=== PATIENT | male | born 1950 | race Caucasian/White ===

== ENCOUNTER → 2017-02-10 | Outpatient (REF) | payer OTHER ==
[~2017-02-10] MED LIST: /LANS30GR; FLON0.05; LIPI20TA; PROBIOTICS; [UNRECOGNIZED DRUG - OTHER]
[2017-02-13 00:07] LABS: Lyme Disease IgG Ab 18 kDa Ban Absent (.); Lyme Disease IgG Ab 23 kDa Ban Absent (.); Lyme Disease IgG Ab 28 kDa Ban Absent (.); Lyme Disease IgG Ab 30 kDa Ban Absent (.); Lyme Disease IgG Ab 39 kDa Ban Absent (.); Lyme Disease IgG Ab 41 kDa Ban Present (.); Lyme Disease IgG Ab 45 kDa Ban Absent (.); Lyme Disease IgG Ab 58 kDa Ban Absent (.); Lyme Disease IgG Ab 66 kDa Ban Absent (.); Lyme Disease IgG Ab 93 kDa Ban Absent (.); Lyme Disease IgG West Blot Int Negative (.); Lyme Disease IgG/IgM Antibodie <0.91 ISR (0.00-0.90); Lyme Disease IgM Ab 23 kDa Ban Present (.); Lyme Disease IgM Ab 39 kDa Ban Absent (.); Lyme Disease IgM Ab 41 kDa Ban Absent (.); Lyme Disease IgM Ab Quantitati 1.98 index (0.00-0.79); Lyme Disease IgM West Blot Int Negative (.)
== END ==
LOC: M LAB REF 17:03
PROVIDERS: ATTEND Family Medicine
DX: R50.9 Fever, unspecified (principal); W57.XXXA Bitten or stung by nonvenomous insect and other nonvenomous arthropods, initial encounter; Y93.9 Activity, unspecified; Y92.9 Unspecified place or not applicable; Y99.8 Other external cause status

== ENCOUNTER → 2017-06-16 | Outpatient (REF) | payer OTHER ==
[2017-06-21 00:06] LABS: Lyme Disease IgG Ab 18 kDa Ban Present (.); Lyme Disease IgG Ab 23 kDa Ban Present (.); Lyme Disease IgG Ab 28 kDa Ban Absent (.); Lyme Disease IgG Ab 30 kDa Ban Absent (.); Lyme Disease IgG Ab 39 kDa Ban Present (.); Lyme Disease IgG Ab 41 kDa Ban Present (.); Lyme Disease IgG Ab 45 kDa Ban Absent (.); Lyme Disease IgG Ab 58 kDa Ban Absent (.); Lyme Disease IgG Ab 66 kDa Ban Absent (.); Lyme Disease IgG Ab 93 kDa Ban Absent (.); Lyme Disease IgG West Blot Int Negative (.); Lyme Disease IgG/IgM Antibodie <0.91 ISR (0.00-0.90); Lyme Disease IgM Ab 23 kDa Ban Present (.); Lyme Disease IgM Ab 39 kDa Ban Absent (.); Lyme Disease IgM Ab 41 kDa Ban Absent (.); Lyme Disease IgM Ab Quantitati 0.88 index (0.00-0.79); Lyme Disease IgM West Blot Int Negative (.)
== END ==
LOC: M LAB REF 17:23
PROVIDERS: ATTEND Family Medicine
DX: Z11.9 Encounter for screening for infectious and parasitic diseases, unspecified (principal)

== ENCOUNTER → 2018-10-20 | Outpatient (REF) | payer MEDICARE, OTHER | LOC: M SFHCPLAZ 10:33 | PROVIDERS: ATTEND Dermatology | DX: L30.8 Other specified dermatitis (principal); L57.0 Actinic keratosis ==

== ENCOUNTER → 2019-03-15 | Outpatient (CLI) | payer MEDICARE, OTHER ==
[~2019-03-15] MED LIST changes: +PROHANCE 279.3MG/ML 15ML VIAL (A9576) As Ordered ONE; +PROHANCE 279.3MG/ML 5ML VIAL (A9576) As Ordered ONE
[2019-03-15 11:55] LABS: BLOOD UREA NITROGEN 26 MG/DL (7-18); CREATININE FOR GFR 0.91 MG/DL (0.70-1.30); GLOMERULAR FILTRATION RATE > 60.0 (>49)
--- NOTE | 2019-03-15 16:13 | REPVR ---
EXAM: MR Neck Without and With Contrast EXAM DATE/TIME: 03/15/2019 1:12 PM CLINICAL HISTORY: 68 years old, male; Condition or disease; Other: Mass marked with markers; Patient HX: Mass on jaw/neck that is marked with markers; Additional info: 3cm mass over L angle of mandible TECHNIQUE: Imaging protocol: MR images of the neck without and with intravenous contrast. Contrast material: PROHANCE; Contrast volume: 20 ml; Contrast route: 22G ANGIO; COMPARISON: No relevant prior studies available. FINDINGS: Nasopharynx: Unremarkable. Oropharynx: Unremarkable. Hypopharynx: Unremarkable. Larynx: Unremarkable. Submandibular/Parotid glands: Minimally T1-T2 hypointense nodule which demonstrates mild enhancement in the superficial lobe of the left parotid gland measures 1.2 x 1.8 x 0.8 cm may represent a pleomorphic adenoma. An intraparotid lymph node is less likely consideration. Sinuses: Mild inflammatory changes in the ethmoid sinuses. Retropharyngeal space: Unremarkable. Vasculature: Unremarkable. Lymph nodes: See Submandibular/parotid Glands Finding. Soft tissues: There is asymmetric enlargement of the left masseter and sternocleidomastoid muscles with respect to the right which results in increased fullness in the left neck in comparison to the right. Bones/joints: Unremarkable. IMPRESSION: 1. Minimally T1-T2 hypointense nodule which demonstrates mild enhancement in the superficial lobe of the left parotid gland measures 1.2 x 1.8 x 0.8 cm may represent a pleomorphic adenoma. An intraparotid lymph node is less likely consideration. 2. There is asymmetric enlargement of the left masseter and sternocleidomastoid muscles with respect to the right which results in increased fullness in the left neck in comparison to the right. Electronically signed by: León Pérez On 03/15/2019 16:13:03 PM
== END ==
LOC: M LAB 10:56
PROVIDERS: ATTEND Otolaryngology
DX: R22.1 Localized swelling, mass and lump, neck (principal)
CPT/HCPCS: 36415; 70543; 82565; 84520; A9576

== ENCOUNTER → 2020-01-09 | Outpatient (CLI) | payer MEDICARE, OTHER ==
[~2020-01-09] MED LIST changes: +BIMA01SOL OP; +LIDOCAINE 1% MDV 20ML VIAL As Ordered ONE; -PROHANCE 279.3MG/ML 15ML VIAL (A9576) As Ordered ONE; -PROHANCE 279.3MG/ML 5ML VIAL (A9576) As Ordered ONE; +TIMO0.5S39 OP
[2020-01-09 09:34] VITALS: BP 165/78
--- NOTE | 2020-01-09 18:28 | REP ---
ULTRASOUND-GUIDED LEFT NECK MASS BIOPSY The procedure was performed under the direct supervision of Dr. Murry. Preliminary sonography, at the palpable abnormality, demonstrates a 3.2 by a 0.9 cm mass in the left neck. The risks and benefits of the procedure were explained to the patient and informed consent was obtained. The left neck mass was localized using ultrasound guidance. The skin was prepped and draped in a sterile fashion. 1% lidocaine was used as a local anesthetic. Using ultrasound guidance eight fine-needle aspirations were obtained and sent to lab for analysis. The patient tolerated the procedure well and there were no immediate complications. After the appropriate amount of monitored convalescence the patient was discharged from the department. Electronically Signed by ANA Gamez 01/09/2020 03:32 P Electronically Signed by Kody Murry MD 01/09/2020 06:19 P
== END ==
LOC: M IRPRO 09:20
PROVIDERS: ATTEND Otolaryngology
DX: D37.030 Neoplasm of uncertain behavior of the parotid salivary glands (principal)

== ENCOUNTER → 2020-04-03 | Outpatient (CLI) | payer MEDICARE, OTHER ==
[~2020-04-03] MED LIST changes: -LIDOCAINE 1% MDV 20ML VIAL As Ordered ONE; +PROHANCE 279.3MG/ML 15ML VIAL As Ordered ONE; +PROHANCE 279.3MG/ML 5ML VIAL As Ordered ONE
--- NOTE | 2020-04-03 14:51 | REPVR ---
PROCEDURE INFORMATION: Exam: MR Neck Without and With Contrast Exam date and time: 04/03/2020 1:02 PM Age: 69 years old Clinical indication: F/u lt parotid mass. TECHNIQUE: Imaging protocol: MR images of the neck without and with intravenous contrast. Contrast material: PROHANCE; Contrast volume: 20 ml; Contrast route: INTRAVENOUS (IV); COMPARISON: MRI ORBIT FACE NECK W/O FOLL W 03/15/2019 12:26 PM FINDINGS: Nasopharynx: Unremarkable. Oropharynx: Unremarkable. Hypopharynx: Unremarkable. Larynx: Unremarkable. Submandibular/Parotid glands: No definite parotid gland mass is seen on this exam. There is mild fullness of the tail of the left parotid gland but this does not have the appearance of a discrete mass. Prior report did not indicate which slice or image the suspected mass was observed. If patient's symptoms persist and/or worsen, followup postcontrast CT scan may be helpful. Retropharyngeal space: Unremarkable. Vasculature: Unremarkable. Lymph nodes: No lymphadenopathy. Soft tissues: Unremarkable. Bones/joints: Unremarkable. IMPRESSION: No definite parotid gland mass is seen on this exam. There is mild fullness of the tail of the left parotid gland but this does not have the appearance of a discrete mass. Prior report did not indicate which slice or image the suspected mass was observed. If patient's symptoms persist and/or worsen, followup postcontrast CT scan may be helpful. Electronically signed by: Helio Edouard On 04/03/2020 14:51:22 PM
== END ==
LOC: M RAD 12:51
PROVIDERS: ATTEND Otolaryngology
DX: D37.030 Neoplasm of uncertain behavior of the parotid salivary glands (principal); Z86.010 Personal history of colon polyps
CPT/HCPCS: 70543; A9576

== ENCOUNTER 2020-07-19 19:43 | Emergency (ER) | payer MEDICARE, OTHER ==
[~2020-07-19] VITALS: Ht 175.3 cm; Wt 107.3 kg
[~2020-07-19 19:43] MED LIST changes: -PROHANCE 279.3MG/ML 15ML VIAL As Ordered ONE; -PROHANCE 279.3MG/ML 5ML VIAL As Ordered ONE
[2020-07-19 21:23] LABS: VENOUS BASE EXCESS -0.2 (-2.0-2.0); VENOUS HCO3 24.3 MEQ/L (23.0-27.0); VENOUS O2 SATURATION 95.7 % (60.0-80.0); VENOUS PARTIAL PRESSURE CO2 39.6 mmHg (38.0-50.0); VENOUS PH 7.406 UNITS (7.330-7.430); VENOUS STANDARD HCO3 24.2 MEQ/L; VENOUS TOTAL CO2 25.5 MEQ/L (24.0-28.0)
[2020-07-19 21:27] LABS: BASO # 0.1 10^3/uL (0.0-0.2); BASO % 0.5 % (0.0-1.0); EOS # 0.2 10^3/uL (0.0-0.5); EOS % 1.3 % (0.0-3.0); HEMATOCRIT 44.9 % (42.0-52.0); HEMOGLOBIN 14.8 g/dl (13.5-17.5); LYMPH # 1.9 10^3/uL (1.5-5.0); LYMPH % 14.7 % (24.0-44.0); MEAN CORPUSCULAR HEMOGLOBIN 30.2 pg (27.0-33.0); MEAN CORPUSCULAR VOLUME 91.6 fl (80.0-96.0); MONO # 0.9 10^3/uL (0.0-0.8); MONO % 6.7 % (0.0-5.0); PLATELET COUNT, AUTOMATED 247 10^3/uL (150-450); WHITE BLOOD COUNT 13.1 10^3/uL (4.0-10.0)
[2020-07-19] MEDS ORDERED: PRED20TA (21:34)
[2020-07-19] MEDS ORDERED: FAMO20TA5 (21:34)
[2020-07-19] MEDS ORDERED: GUAISYP9 (21:34)
[2020-07-19] MEDS ORDERED: IPRA0.00 (21:34)
[2020-07-19] MEDS ORDERED: AMOX875T (21:34)
[2020-07-19 21:59] LABS: ALBUMIN 4.2 GM/DL (3.2-5.2); ALT/SGPT 36 U/L (12-78); BILIRUBIN,TOTAL 0.8 MG/DL (0.2-1.0); BLOOD UREA NITROGEN 24 MG/DL (7-18); CALCIUM LEVEL 10.2 MG/DL (8.8-10.2); CARBON DIOXIDE LEVEL 26 MEQ/L (21-32); CHLORIDE LEVEL 108 MEQ/L (98-107); CK-MB VALUE MASS 1.9 NG/ML (<3.6); CPK CREATINE PHOSPHOKINASE 218 U/L (39-308); CREATININE FOR GFR 0.86 MG/DL (0.70-1.30); GLOMERULAR FILTRATION RATE > 60.0 (>49); GLUCOSE, FASTING 124 MG/DL (70-100); LDH LACTATE DEHYDROGENASE 190 U/L (87-241); MB/CK RELATIVE INDEX 0.87 (< OR =4); POTASSIUM SERUM 3.9 MEQ/L (3.5-5.1); SODIUM LEVEL 139 MEQ/L (136-145); TOTAL PROTEIN 7.5 GM/DL (6.4-8.2); TROPONIN I < 0.02 NG/ML (< 0.10)
[2020-07-19 22:05] LABS: RSV AMPLIFICATION NEGATIVE (NEGATIVE)
--- NOTE | 2020-07-19 22:23 | REPVR ---
PROCEDURE INFORMATION: Exam: XR Chest, 1 View Exam date and time: 07/19/2020 8:17 PM Age: 70 years old Clinical indication: Chest pain; Type not specified; Additional info: Coronavirus workup TECHNIQUE: Imaging protocol: XR of the chest Views: 1 view. COMPARISON: No relevant prior studies available. FINDINGS: Lungs: Mild atelectasis left costophrenic angle. Lungs otherwise clear. Pleural space: Unremarkable. Heart/Mediastinum: Unremarkable. No cardiomegaly. Bones/joints: Unremarkable. IMPRESSION: No acute findings. Electronically signed by: León Pérez On 07/19/2020 22:23:37 PM
[2020-07-19] MEDS: NS 1,000 ML IV ONE ×2 (22:30→22:59)
[2020-07-19 22:45] VITALS: BP 146/83
--- NOTE | 2020-07-20 07:44 | ECGEPIP ---
[facility] - ED Test Date: 2020-07-19 Pat Name: NELY MENDEZ Department: Room: - Gender: Male [employer] Maintenance Repairer: anila : 1950 Requested By: HARVINDER BASHIR Order Number: [id number] Reading MD: Hannah Maharaj Measurements Intervals Tea Rate: 82 P: 3 WI: 221 QRS: -11 QRSD: 97 T: 28 QT: 370 QTc: 434 Interpretive Statements SINUS RHYTHM WITH FIRST DEGREE AV BLOCK NSTTW abnormalities No prior Electronically Signed on 07-20-2020 7:43:37 EST by Hannah Maharaj
== END 2020-07-19 23:20 | disposition home or self-care (01) ==
LOC: M ED 19:43
DX: J20.9 Acute bronchitis, unspecified (principal); R94.31 Abnormal electrocardiogram [ECG] [EKG]; F17.200 Nicotine dependence, unspecified, uncomplicated; Z79.52 Long term (current) use of systemic steroids; Z79.2 Long term (current) use of antibiotics; Z79.899 Other long term (current) drug therapy; Z88.8 Allergy status to other drugs, medicaments and biological substances

== ENCOUNTER → 2020-09-11 | Outpatient (CLI) | payer MEDICARE, OTHER ==
[~2020-09-11] MED LIST changes: +AMOX875T; +FAMO20TA5; +GUAISYP9; +IPRA0.00; +PRED20TA
--- NOTE | 2020-09-13 14:44 | SLEEPCENT ---
DATE: 09/11/2020 ORDERED BY: Dr. Lombardi Nocturnal polysomnography was performed for evaluation of sleep physiology in this patient with a history of nonrestorative sleep, excessive somnolence, and multiple comorbidities. There was 7 hours and 24 minutes of data reviewed. There was 326 minutes of sleep identified. Sleep latency was prolonged at 43 minutes. REM latency was mildly prolonged at 121 minutes. Sleep architecture was fair with some fragmentation. There were four REM cycles appreciated. Overall sleep efficiency was 74.1%. The electrocardiogram shows a sinus rhythm with a borderline first-degree atrioventricular (AV) block. Average heart rate 55 beats per minute. Rate ranged 45-75. EEG shows normal waveforms for wake and sleep. No focal events were identified. There were 46 respiratory events identified of 10 seconds in duration or greater for an apnea-hypopnea index of 8.5. The events were obstructive, not exclusive to sleep stage nor body posture. Arousals from respiratory events occurred 3.7 times per hour, and oxygen desaturations were seen into the mid 80s. There was some activity in the limb leads and one train of event. Limb movement arousal index was 3.3. IMPRESSION: Obstructive sleep apnea syndrome (G47.33). Apnea-hypopnea index 8.5. RECOMMENDATION: The patient should be encouraged to return to the sleep disorder center for pressure therapy. In the interim, alcohol and sedative avoidance should be practiced and caution exercised during the operation of motor vehicles.
== END ==
LOC: M SLEEP 20:00
PROVIDERS: ATTEND Internal Medicine Pulmonary Disease
DX: G47.30 Sleep apnea, unspecified (principal)

== ENCOUNTER → 2021-05-13 | Outpatient (REF) | payer MEDICARE, OTHER ==
[2021-05-15 13:07] LABS: Lyme Disease IgG/IgM Antibodie <0.91 ISR (0.00-0.90); Lyme Disease IgM Ab Quantitati <0.80 index (0.00-0.79)
== END ==
LOC: M LAB REF 16:33
PROVIDERS: ATTEND Family Medicine
DX: R53.83 Other fatigue (principal); W57.XXXA Bitten or stung by nonvenomous insect and other nonvenomous arthropods, initial encounter

== ENCOUNTER → 2023-02-10 | Outpatient (REF) | payer MEDICARE, OTHER | LOC: M LAB REF 16:34 | PROVIDERS: ATTEND Family Medicine | DX: E56.9 Vitamin deficiency, unspecified (principal) ==

== ENCOUNTER → 2023-11-06 | Outpatient (REF) | payer MEDICARE, OTHER | LOC: M LAB REF 16:48 | PROVIDERS: ATTEND Family Medicine | DX: R97.20 Elevated prostate specific antigen [PSA] (principal) ==

== ENCOUNTER → 2024-03-29 | Outpatient (REF) | payer MEDICARE, OTHER ==
[2024-04-01 13:01] LABS: PSA FREE 0.3 ng/mL; PSA TOTAL 1.5 ng/mL (< OR = 4.0)
== END ==
LOC: M LAB REF 16:51
PROVIDERS: ATTEND Family Medicine
DX: R97.20 Elevated prostate specific antigen [PSA] (principal)

== ENCOUNTER → 2025-07-05 | Outpatient (REF) | payer MEDICARE, OTHER ==
[~2025-07-05] MED LIST changes: -TIMO0.5S39 OP; +TIMO5DRO9 OP
== END ==
LOC: M LAB REF 12:00
PROVIDERS: ATTEND Family Medicine
DX: Z11.9 Encounter for screening for infectious and parasitic diseases, unspecified (principal)